=== PATIENT | female | born 1975 | race African-American/Black ===

== ENCOUNTER 2019-07-27 11:11 | Day surgery (SDC) | payer MEDICAID, SELFPAY ==
[~2019-07-27] VITALS: Ht 160 cm; Wt 78.0 kg
[2019-07-27] MEDS ORDERED: KETOROLAC TROMETHAMINE 30 MG VIAL ONE ×2 (16:05→18:11)
[2019-07-27] MEDS ORDERED: SEVOFLURANE 15 MIN GAS INH ONE (16:05)
[2019-07-27] MEDS ORDERED: HYDROmorphone 2 MG/ML VIAL ONE (16:05)
[2019-07-27] MEDS ORDERED: LR 1,000 ML IV.SOLN IV ONE (16:05)
[2019-07-27] MEDS ORDERED: NS IRRIG SOLN 5000 ML IR ONE (16:05)
[2019-07-27] MEDS ORDERED: ONDANSETRON HCL 4 MG/2 ML VIAL ONE (16:05)
[2019-07-27] MEDS ORDERED: SUCCINYLCHOLINE CHLORIDE 20 MG/ML(QUELICIN) ONE (16:05)
[2019-07-27] MEDS ORDERED: NS IRRIG SOLN 1000 ML IR ONE (16:05)
[2019-07-27] MEDS ORDERED: MIDAZOLAM HCL 5 MG/ML VIAL (VERSED) IV ONE (16:05)
[2019-07-27] MEDS ORDERED: METOCLOPRAMIDE HCL 10 MG/2 ML VIAL ONE (16:05)
[2019-07-27] MEDS ORDERED: LR 1,000 ML IV SCH (16:25)
[2019-07-27] MEDS ORDERED: ePHEDrine sulfate 50 MG/ML VIAL IVP PRN (16:30)
[2019-07-27] MEDS ORDERED: MIDAZOLAM HCL 5 MG/5 ML VIAL IVP PRN (16:30)
[2019-07-27] MEDS ORDERED: NALOXONE HCL 0.4 MG/ML AMP (NARCAN) IVP PRN (16:30)
[2019-07-27] MEDS ORDERED: HYDROmorphone 1 MG INJ. 1 MG/ML AMPUL IVP PRN (16:30)
[2019-07-27] MEDS ORDERED: HYDROmorphone 2 MG/ML VIAL IVP PRN ×2 (16:30)
[2019-07-27] MEDS ORDERED: MEPERIDINE HCL/PF 25 MG/ML DISP.SYRIN IVP PRN (16:30)
[2019-07-27] MEDS ORDERED: DILTIAZEM HCL 25 MG/5 ML VIAL IVP PRN (16:30)
[2019-07-27 16:45] VITALS: BP_SYST 117
[2019-07-27] MEDS ORDERED: KETOROLAC TROMETHAMINE 30 MG VIAL IVP ONE (18:00)
== END 2019-07-27 18:55 | disposition home or self-care (01) ==
LOC: SDS 11:11 → SMU 11:12 → SDS 18:40
PROVIDERS: ATTEND Obstetrics & Gynecology
DX: N92.0 Excessive and frequent menstruation with regular cycle (principal); D25.0 Submucous leiomyoma of uterus; D25.2 Subserosal leiomyoma of uterus
CPT/HCPCS: 58561; 58563; 88305; C1819; J0330; J1170; J1885; J2250; J2405; J2765; J7120; U0002

== ENCOUNTER 2021-09-10 05:30 | Inpatient (IN) | payer MEDICAID ==
[~2021-09-10] VITALS: Ht 165.1 cm; Wt 74.8 kg
[2021-09-10 05:54] LABS: HCG,QUAL RESULT NEGATIVE (NEGATIVE)
[2021-09-10] MEDS ORDERED: HYDROmorphone 2 MG/ML VIAL IVP ONE (07:51)
[2021-09-10] MEDS ORDERED: LR 1,000 ML IV.SOLN IV ONE (07:51)
[2021-09-10] MEDS ORDERED: BUPIVACAINE /EPINEPHRINE/PF 0.25% 30 ML VIAL INJ ONE (07:51)
[2021-09-10] MEDS ORDERED: GLYCOPYRROLATE 0.2 MG/ML VIAL IJ ONE (07:51)
[2021-09-10] MEDS ORDERED: METOCLOPRAMIDE HCL 10 MG/2 ML VIAL IVP ONE (07:51)
[2021-09-10] MEDS ORDERED: SEVOFLURANE 15 MIN GAS INH ONE (07:51)
[2021-09-10] MEDS ORDERED: ROCURONIUM BROMIDE 10 MG/ML (ZEMURON) IV ONE (07:51)
[2021-09-10] MEDS ORDERED: MIDAZOLAM HCL 5 MG/5 ML VIAL IVP ONE (07:51)
[2021-09-10] MEDS ORDERED: NS IRRIG SOLN 1000 ML IR ONE (07:51)
[2021-09-10] MEDS ORDERED: ONDANSETRON HCL 4 MG/2 ML VIAL IVP ONE (07:51)
[2021-09-10] MEDS ORDERED: CEFAZOLIN 2 GM IVPB PREMIX 50 ML IV ONE (07:51)
[2021-09-10] MEDS ORDERED: fentaNYL CITRATE/PF 100 MCG/2 ML AMP IVP ONE (07:51)
[2021-09-10] MEDS ORDERED: PROPOFOL 200MG/ 20ML VIAL (DIPRIVAN) IV ONE (07:51)
[2021-09-10] MEDS ORDERED: NEOSTIGMINE METHYLSULFATE 1 MG/ML, 10 ML VIAL IVP ONE (07:51)
[2021-09-10] MEDS ORDERED: DEXAMETHASONE SOD PHOSPHATE 4 MG/ML VIAL IVP ONE (07:51)
[2021-09-10] MEDS ORDERED: ePHEDrine sulfate 50 MG/ML VIAL IVP ONE (07:51)
[2021-09-10] MEDS ORDERED: LABETALOL 100 MG/ 20ML VIAL IVP PRN (08:45)
[2021-09-10] MEDS ORDERED: HYDROmorphone 1 MG/ML INJ. CARTRIDGE IVP PRN (08:45)
[2021-09-10] MEDS ORDERED: LR 1,000 ML IV SCH (08:45)
[2021-09-10] MEDS ORDERED: KETOROLAC TROMETHAMINE 30 MG VIAL IVP PRN (08:45)
[2021-09-10] MEDS ORDERED: ONDANSETRON HCL 4 MG/2 ML VIAL IVP PRN ×2 (08:45→09:30)
[2021-09-10] MEDS ORDERED: MEPERIDINE HCL/PF 25 MG/ML DISP.SYRIN IVP PRN (08:45)
[2021-09-10] MEDS ORDERED: SIMETHICONE 80 MG TAB.CHEW PO PRN (09:30)
[2021-09-10] MEDS ORDERED: HYDROmorphone 2 MG/ML VIAL IVP PRN (09:30)
[2021-09-10] MEDS ORDERED: IBUPROFEN 800 MG TABLET PO PRN (09:30)
[2021-09-10] MEDS ORDERED: OXYCODONE/ACETAMINOPHEN 5-325 TABLET PO PRN ×2 (09:30)
[2021-09-10] MEDS: LR 1,000 ML IV SCH ×2 (11:45→21:05)
[2021-09-10] MEDS: KETOROLAC TROMETHAMINE 30 MG VIAL IVP PRN (16:45)
[2021-09-10 19:50] VITALS: BP_SYST 105
[2021-09-10] MEDS ORDERED: TEMAZEPAM 15 MG CAPSULE PO PRN (21:00)
[2021-09-10] MEDS: DOCUSATE SODIUM 100 MG CAPSULE PO SCH (21:04)
[2021-09-11 00:39] VITALS: BP_SYST 109
[2021-09-11] MEDS: LR 1,000 ML IV SCH (01:30)
[2021-09-11 06:58] LABS: BASOPHILS % (AUTO) 0.3 % (0.0-2.0); HEMATOCRIT 29.6 % (36-48); HEMOGLOBIN 10.1 g/dL (12.0-16.0); LYMPHOCYTES # (AUTO) 1.3 K/uL (1.0-5.5); LYMPHOCYTES % (AUTO) 9.2 % (20.5-51.5); MEAN CORPUSCULAR HEMOGLOBIN 33 pg (27-31); MEAN CORPUSCULAR HGB CONC 34 % (32-36); MEAN CORPUSCULAR VOLUME 95 fL (79.0-98.0); MONOCYTES % (AUTO) 7.5 % (1.7-9.3); NEUTROPHILS # (AUTO) 11.3 K/uL (1.8-7.7); PLATELET COUNT (AUTO) 277 K/uL (130-430); WHITE BLOOD COUNT (AUTO) 13.6 K/uL (4.8-10.8)
[2021-09-11] MEDS: KETOROLAC TROMETHAMINE 30 MG VIAL IVP PRN (07:17)
[2021-09-11 08:00] VITALS: BP_SYST 117
[2021-09-11] MEDS: DOCUSATE SODIUM 100 MG CAPSULE PO SCH (10:11)
[2021-09-11 11:12] VITALS: BP_SYST 104
== END 2021-09-11 13:40 | disposition home or self-care (01) | DRG 519 ==
LOC: SMU 05:30 → SDS 05:30 → SMU 10:53
PROVIDERS: ADMIT Obstetrics & Gynecology; ATTEND Obstetrics & Gynecology
PROC: 0UT90ZL Resection of Uterus, Supracervical, Open Approach (ICD-10-PCS; principal; 2021-09-10 07:30)
DX: D25.1 Intramural leiomyoma of uterus (principal); N92.0 Excessive and frequent menstruation with regular cycle; Z20.822 Contact with and (suspected) exposure to COVID-19
CPT/HCPCS: 36415; 84703; 85025; 86886; 86900; 86901; 87081; 88307; C1727; J0690; J1100; J1170; J1885; J2250; J2405; J2704; J2710; J2765; J3010; J3490; J7120; U0003